=== PATIENT | male | born 1965 | race Caucasian/White ===

== ENCOUNTER 2022-09-19 08:48 | Emergency (ER) | payer MEDICARE, SELFPAY ==
[2022-09-19 09:02] VITALS: BP 178/108; PULSE 108; RESP 16; TEMP 36.7; O2SAT 99
--- NOTE | 2022-09-19 10:09 | ED.GENADULT ---
HPI - General Adult General Chief complaint: Unspecified Stated complaint: refill Time Seen by Provider: 09/19/22 08:52 Source: patient Mode of arrival: ambulatory Limitations: no limitations History of Present Illness HPI narrative: 57-year-old male [facility] requesting a refill of his Ritalin. Patient reports he takes Ritalin 10 mg 3 times a day. Patient reports he has been taking this medication years as part of pain management due to him taking Dilaudid daily Through his pain pump. Patient reports he has had this pain pump for the past 15 years. Patient reports that he recently moved back here from [place] and is scheduled to see a new pain management provider at [facility] on September 29, 2022. Patient reports that his primary care provider back in [place] is now refusing to fill his Ritalin any longer due to him moving out of [facility]. Related Data Home Medications Medication Instructions Recorded Confirmed duloxetine 60 mg capsule,delayed 60 mg PO BID 09/19/22 09/19/22 release methylphenidate HCl 10 mg tablet 10 mg PO TID 09/19/22 09/19/22 naproxen sodium 220 mg tablet 220 mg PO BID 09/19/22 09/19/22 Allergies Allergy/AdvReac Type Severity Reaction Status Date / Time cephalexin [From Keflex] Allergy Intermediate Hives Verified 09/19/22 10:06 Review of Systems Constitutional: Constitutional: Denies body ache(s) and Denies chills Cardiovascular: Cardiovascular: Denies chest pain Respiratory: Respiratory: Denies cough and Denies wheezing Gastrointestinal: Gastrointestinal: Denies nausea and Denies vomiting Musculoskeletal: Musculoskeletal: Reports back pain Comments: Chronic back pain [facility] Past Medical History Medical History (Updated 09/19/22 @ 10:13 by Meaghan Roger APRN) Chronic back pain Comments At time of signature, I agree with nursing past medical, surgical, social and family history. There is no relevant family history pertinent to the presenting complaint. Exam Const: General: cooperative, healthy appearing, comfortable, no acute distress and anxious Eyes: Eyelids: eyelids normal Conjunctivae: conjunctivae normal Neck: Neck: normal visual inspection and full ROM Resp: Effort & Inspection: normal respiratory effort, able to speak in complete sentences, normal respiratory pattern, no audible wheezes and no cough Auscultation: clear to auscultation bilaterally Cardio: Rate: regular rate Rhythm: regular rhythm Skin: General skin exam: normal color Psych: Appearance: grossly normal Course Course Level of Care: [facility] Visit Vital Signs Vital signs: Vital Signs Temperature 36.7 C 09/19/22 09:02 Pulse Rate 108 H 09/19/22 09:02 Respiratory Rate 16 09/19/22 09:02 Blood Pressure 178/108 H 09/19/22 09:02 Pulse Oximetry 99 09/19/22 09:02 Oxygen Delivery Room Air 09/19/22 09:02 Temperature 36.7 C 09/19/22 09:02 Pulse Rate 108 H 09/19/22 09:02 Respiratory Rate 16 09/19/22 09:02 Blood Pressure 178/108 H 09/19/22 09:02 Pulse Oximetry 99 09/19/22 09:02 Oxygen Delivery Room Air 09/19/22 09:02 Medical Decision Making MDM Narrative Medical decision making narrative: ilpmp reviewed; instructed patient that unfortunately I would not be able to refill his Ritalin today as it is a controlled substance. Patient reports that he understands and will check with other urgent cares or emergency rooms in the area. Patient was provided with phone numbers of local primary care providers as well Vital Signs Vital Signs: Vital Signs Temperature 36.7 C 09/19/22 09:02 Pulse Rate 108 H 09/19/22 09:02 Respiratory Rate 16 09/19/22 09:02 Blood Pressure 178/108 H 09/19/22 09:02 Pulse Oximetry 99 09/19/22 09:02 Oxygen Delivery Room Air 09/19/22 09:02 Temperature 36.7 C 09/19/22 09:02 Pulse Rate 108 H 09/19/22 09:02 Respiratory Rate 16 09/19/22 09:02 Blood Pressure 178/108 H 09/19/22 09:02 Pulse Ox
== END 2022-09-19 10:25 | disposition home or self-care (01) ==
PROVIDERS: Emergency Provider Nurse Practitioner Family
DX: Z76.0 Encounter for issue of repeat prescription (principal)
CPT/HCPCS: 99211; G0463

== ENCOUNTER 2022-09-20 07:44 | Emergency (ER) | payer MEDICARE, MEDICAID, SELFPAY ==
[2022-09-20 07:48] VITALS: BP 189/118; PULSE 109; RESP 18; TEMP 36.5; O2SAT 99
--- NOTE | 2022-09-20 08:36 | ED.RECABL ---
HPI - Recheck/Abnormal Lab/Rx General Chief Complaint: Recheck/Abnormal Lab/Rx Stated Complaint: Ritalin refill Time Seen by Provider: 09/20/22 08:32 History of Present Illness HPI narrative: Pt just moved to area from [place]. Pt has intrathecal pain pump with dilaudid for chronic back pain issues. Pt takes ritalin as well and is out of ritalin rx. Pt unable to get it filled until his pain appointment 09/29. Pt takes 10mg tid. Pt denies other issues. Related Data Home Medications Medication Instructions Recorded Confirmed duloxetine 60 mg capsule,delayed 60 mg PO BID 09/19/22 09/19/22 release methylphenidate HCl 10 mg tablet 10 mg PO TID 09/19/22 09/19/22 naproxen sodium 220 mg tablet 220 mg PO BID 09/19/22 09/19/22 Allergies Allergy/AdvReac Type Severity Reaction Status Date / Time cephalexin [From Keflex] Allergy Intermediate Hives Verified 09/19/22 10:06 Review of Systems Review of Systems: All systems reviewed & are unremarkable except as noted in HPI and below PMFSH Past Medical History Medical History (Updated 09/20/22 @ 08:39 by Deyanira Burt III, DO) Chronic back pain Exam Const: General: healthy appearing and no acute distress Nutritional Appearance: well nourished Orientation/consciousness: patient oriented x3 Limitations: no limitations HENMT: Head: normal to inspection Eyes: Conjunctivae: conjunctivae normal EOM: EOMs intact bilaterally Neck: Neck: normal visual inspection Back/Spine/Pelvis: Other: no significant tenderness Skin: General skin exam: normal color Rashes: no rashes Wounds: no wounds Neuro: General: patient oriented x3 and moves all extremities Speech: normal speech Gait exam (Neuro): Normal gait present Extrem: General: normal to inspection Psych: Mental Status: mental status grossly normal Affect: normal affect Attitude: cooperative Course Vital Signs Vital signs: Vital Signs Temperature 97.7 F 09/20/22 07:48 Pulse Rate 109 H 09/20/22 07:48 Respiratory Rate 18 09/20/22 07:48 Blood Pressure 189/118 H 09/20/22 07:48 Pulse Oximetry 99 09/20/22 07:48 Oxygen Delivery Room Air 09/20/22 07:48 Temperature 97.7 F 09/20/22 07:48 Pulse Rate 109 H 09/20/22 07:48 Respiratory Rate 18 09/20/22 07:48 Blood Pressure 189/118 H 09/20/22 07:48 Pulse Oximetry 99 09/20/22 07:48 Oxygen Delivery Room Air 09/20/22 07:48 Discharge Plan Discharge Clinical Impression: Chronic back pain Patient Disposition: Home, Self-Care Condition: Stable Instructions: Antibiotic Form, Back Pain (ED) Prescriptions: New methylphenidate HCl [Ritalin] 10 mg tablet 10 mg PO TID Qty: 40 0RF No Action methylphenidate HCl 10 mg Tablet 10 mg PO TID naproxen sodium 220 mg Tablet 220 mg PO BID duloxetine 60 mg capsule,delayed release(DR/EC) 60 mg PO BID Follow-up/Referrals: PHYSICIAN,TURN DOWN ATTENDANT [Primary Care Provider] -
== END 2022-09-20 09:01 | disposition home or self-care (01) ==
PROVIDERS: Emergency Provider Emergency Medicine
DX: M54.9 Dorsalgia, unspecified (principal); G89.29 Other chronic pain
CPT/HCPCS: 99283

== ENCOUNTER 2022-09-23 09:04 | Emergency (ER) | payer MEDICARE, MEDICAID, SELFPAY ==
--- NOTE | ~2022-09-23 | XR_ITS ---
Lumbosacral Spine: AP and lateral views Clinical History: Pain Findings: There is posterior fusion hardware from L5 to S1, with bilateral rods and transpedicular sc rews present. There is a 2.2 cm anterolisthesis of L5 over S1. There are facet joint degenerative nona nges from L3 through S1. No acute fracture clearly identified. Intrathecal pain pump device present. Impression: No definite acute abnormality. Posterior fusion from L5 to S1 with associated 2.2 cm anterolisthesis of L5 over S1. Facet joint degenerative changes at the lower lumbar spine. Intrathecal pain pump. Reviewed, dictated and finalized at location . BOSS Impression: No definite acute abnormality. Posterior fusion from L5 to S1 with associated 2.2 cm anterolisthesis of L5 ove r S1. Facet joint degenerative changes at the lower lumbar spine. Intrathecal pain pump.
[2022-09-23 09:09] VITALS: BP 193/100; PULSE 100; RESP 14; TEMP 36.4; O2SAT 98
[2022-09-23 09:16] VITALS: BP 188/118; PULSE 95; RESP 16; TEMP 37.1; O2SAT 100
--- NOTE | 2022-09-23 09:33 | ED.BACK ---
HPI - Back Pain/Injury General Chief Complaint: Back Pain/Injury Stated Complaint: back pain Time Seen by Provider: 09/23/22 09:15 History of Present Illness HPI Narrative: Patient is a 57-year-old male with a history of chronic back pain secondary to old traumatic injury, status post pain pump placement in [place], here for evaluation of acute on chronic low back pain. Patient states that his back has been hurting him for the past month. He recently moved from [place] and has not established care with a pain specialist, but has an appointment on the . Presents today due to concerns of his back pump not working properly. He denies any incontinence or retention of his bowel or bladder, he has chronic paresthesias in his bilateral lower extremities, reportedly due to the old injury. No worse than usual. He is ambulatory. No fevers, chills, recent trauma to the back, history of IV drug use. Related Data Home Medications Medication Instructions Recorded Confirmed duloxetine 60 mg capsule,delayed 60 mg PO BID 09/19/22 09/19/22 release methylphenidate HCl 10 mg tablet 10 mg PO TID 09/19/22 09/19/22 naproxen sodium 220 mg tablet 220 mg PO BID 09/19/22 09/19/22 Allergies Allergy/AdvReac Type Severity Reaction Status Date / Time cephalexin [From Keflex] Allergy Intermediate Hives Verified 09/23/22 09:15 Review of Systems Review of Systems: Gen: Denies fevers or chills Eyes: Denies eye pain or visual change ENT: Denies congestion Respiratory: Denies shortness of breath or cough CV: Denies chest pain or palpitations GI: Denies abdominal pain nausea, emesis or diarrhea : denies burning, urgency, frequency or hematuria Musculoskeletal: Reports back pain Neuro: Denies numbness, tingling, weakness or focal weakness Skin: Denies rash Except as documented, all other systems reviewed and negative PMFSH Past Medical History Medical History Chronic back pain Exam Narrative: APPEARANCE: Well appearing, no pain in distress, well-nourished. Head: Normocephalic and atraumatic. EYES: PERRLA/EOMI, conjunctivae clear NOSE: No nasal drainage EARS: External ear normal in appearance THROAT: Oropharynx is clear. Mucous membranes are moist. NECK: Supple. No adenopathy, no masses. RESPIRATORY: Airway patent, respirations nonlabored. Clear to auscultation bilaterally, no rales, rhonchi, wheezing. CARDIOVASCULAR: Regular rate and rhythm without murmurs, rubs, or gallops. ABDOMINAL: Normoactive bowel sounds. Soft, nontender, nondistended. No rebound tenderness or guarding. MUSCULOSKELETAL: Midline tenderness to L5, no step-offs or deformities palpated. Pain pump in place to the left of the L-spine. Extremities are warm and well-perfused. Moves all extremities well. No edema. NEURO: Normal speech. No focal neurologic deficits. SKIN: Skin is warm and dry. No rashes. PSYCHIATRIC: Normal affect/mood. Course Vital Signs Vital signs: Vital Signs Temperature 97.6 F 09/23/22 09:09 Pulse Rate 100 09/23/22 09:09 Respiratory Rate 14 09/23/22 09:09 Blood Pressure 193/100 H 09/23/22 09:09 Pulse Oximetry 98 09/23/22 09:09 Oxygen Delivery Room Air 09/23/22 09:09 Temperature 98.8 F 09/23/22 09:16 Pulse Rate 95 09/23/22 09:16 Respiratory Rate 16 09/23/22 09:16 Blood Pressure 188/118 H 09/23/22 09:16 Pulse Oximetry 100 09/23/22 09:16 Oxygen Delivery Room Air 09/23/22 09:16 MDM - Back Pain/Injury MDM Narrative Medical decision making narrative: 57-year-old male here for evaluation of acute on chronic low back pain since moving to the area and not having pain management. She has a complicated history with a pain pump in place, neurostimulator, and numerous fusion surgeries in the past. Patient is nontoxic-appearing, he does have some midline tenderness to his L4-L5 region. No incontinence or retention of bowel or bladder, saddle anes
[2022-09-23] MEDS: HYDROcodone/acetaminophen (*CRX) 7.5-325 MG TABLET 1 TAB PO (09:40)
--- NOTE | 2022-09-23 09:41 | PC.NURSE ---
Pt to XRAY via w/c, pt able to get up from bed for PO meds w/out difficulty
[2022-09-23 10:09] VITALS: BP 178/88; PULSE 88; RESP 15; O2SAT 97
== END 2022-09-23 10:11 | disposition home or self-care (01) ==
PROVIDERS: Emergency Provider Physician Assistant
DX: M54.50 Low back pain, unspecified (principal); G89.21 Chronic pain due to trauma; Z96.82 Presence of neurostimulator; Z98.1 Arthrodesis status
CPT/HCPCS: 72100; 99283; A9270

== ENCOUNTER 2022-10-21 09:56 | Emergency (ER) | payer MEDICARE, MEDICAID, SELFPAY ==
[2022-10-21 10:25] VITALS: BP 172/108; PULSE 104; RESP 14; TEMP 36.8; O2SAT 98
--- NOTE | 2022-10-21 11:13 | PC.NURSE ---
Not in WR at 1110
--- NOTE | 2022-10-21 11:46 | PC.NURSE ---
Danya Guerrero, production support engineer was escorting pt. to room; she asked the pt. if he was her for back pain today and replied No. I always have back pain, I am here for something different.
--- NOTE | 2022-10-21 12:16 | ED.GENADULT ---
HPI - General Adult General Chief complaint: Unspecified Stated complaint: lower back pain with neuropathy Time Seen by Provider: 10/21/22 12:03 History of Present Illness HPI narrative: Patient is a 57-year-old male presenting for medication refill. Patient states that he has a complicated history of chronic pain related to his lower back surgery many years ago. States that he is on high-dose narcotics and also has a thecal pump for pain control. He recently moved to [place] from [place] approximately 2 months ago. Since that time he was able to get an appointment with a new pain doctor but this physician is uncomfortable refilling his Ritalin. Patient was unable to get a primary care appointment until December. States that he feels he has been unable to function in his life without his Ritalin. States he has been on it for many many years. He otherwise denies complaints. No suicidal or homicidal ideation. No new pain, numbness, weakness. No fevers or chills or other infectious symptoms. Related Data Home Medications Medication Instructions Recorded Confirmed duloxetine 60 mg capsule,delayed 60 mg PO BID 09/19/22 09/19/22 release methylphenidate HCl 10 mg tablet 10 mg PO TID 09/19/22 09/19/22 naproxen sodium 220 mg tablet 220 mg PO BID 09/19/22 09/19/22 Allergies Allergy/AdvReac Type Severity Reaction Status Date / Time cephalexin [From Keflex] Allergy Intermediate Hives Verified 10/21/22 09:56 Review of Systems Review of Systems: All systems reviewed & are unremarkable except as noted in HPI and below PMFSH Past Medical History Medical History Chronic back pain Exam Narrative: GENERAL: Well-appearing, well-nourished, and in no acute distress. Pleasant and cooperative HEAD: Normocephalic, atraumatic. EYES: PERRLA and EOMI. ENT: Nares clear, no rhinorrhea or epistaxis. Mucous membranes moist. NECK: Supple. CHEST: No respiratory distress. HEART: Regular rate and rhythm. ABDOMEN: Soft, nondistended EXTREMITIES: Normal range of motion. No edema. SKIN: Warm, dry, no rash. NEURO: No focal deficits. Alert and oriented x3. PSYCH: Normal mood and affect. Course Vital Signs Vital signs: Vital Signs Temperature 98.2 F 10/21/22 10:25 Pulse Rate 104 H 10/21/22 10:25 Respiratory Rate 14 10/21/22 10:25 Blood Pressure 172/108 H 10/21/22 10:25 Pulse Oximetry 98 10/21/22 10:25 Oxygen Delivery Room Air 10/21/22 10:25 Temperature 98.2 F 10/21/22 10:25 Pulse Rate 100 10/21/22 13:04 Respiratory Rate 19 10/21/22 13:04 Blood Pressure 166/94 H 10/21/22 13:04 Pulse Oximetry 100 10/21/22 13:04 Oxygen Delivery Room Air 10/21/22 10:25 Medical Decision Making MDM Narrative Medical decision making narrative: Patient is a 57-year-old male presenting for medication refill. Patient is hypertensive, his vitals are within normal limits. Patient is well-appearing and in no acute distress. Exam is unremarkable. Discussed with the patient that I do not prescribe Ritalin from the ER. We will provide a one-time dose while he is here. Recommended that he follow-up closely with psychiatry, several numbers have been provided. Appropriate return precautions were given. Patient voiced understanding and is agreeable with plan. Discharged in stable condition. Differential Diagnosis Differential Diagnosis: medication refill Vital Signs Vital Signs: Vital Signs Temperature 98.2 F 10/21/22 10:25 Pulse Rate 104 H 10/21/22 10:25 Respiratory Rate 14 10/21/22 10:25 Blood Pressure 172/108 H 10/21/22 10:25 Pulse Oximetry 98 10/21/22 10:25 Oxygen Delivery Room Air 10/21/22 10:25 Temperature 98.2 F 10/21/22 10:25 Pulse Rate 100 10/21/22 13:04 Respiratory Rate 19 10/21/22 13:04 Blood Pressure 166/94 H 10/21/22 13:04 Pulse Oximetry 100 10/21/22 13:04 Oxygen Delivery Room Air 10/21/22 10:25
--- NOTE | 2022-10-21 13:03 | PC.NURSE ---
called pharm to request medication be brought for pt prior to discharge
[2022-10-21 13:04] VITALS: BP 166/94; PULSE 100; RESP 19; O2SAT 100
[2022-10-21] MEDS: methylPHENIDATE HCL (*CRX) 10 MG TABLET PO (13:37)
== END 2022-10-21 13:41 | disposition home or self-care (01) ==
PROVIDERS: Emergency Provider Emergency Medicine
DX: G89.29 Other chronic pain (principal); M54.50 Low back pain, unspecified; F32.A Depression, unspecified; Z97.8 Presence of other specified devices
CPT/HCPCS: 99283; A9270

== ENCOUNTER 2023-08-05 21:26 | Emergency (ER) | payer OTHER, SELFPAY ==
[2023-08-05] VITALS (10 sets, daily range): BP systolic 144–186; BP diastolic 83–101; PULSE 102; RESP 20; TEMP 36.4; O2SAT 97–99
--- NOTE | ~2023-08-05 | CT_ITS ---
EXAMINATION: CT lumbar spine w con DATE: 08/06/2023 01:27 INDICATION: Assess for spinal infection post lumbar spine pain pump removal. TECHNIQUE: Computed tomography (CT) of the lumbar spine was performed with 100 mL Omnipaque-350 intra venous contrast. Automated exposure control and iterative reconstruction technique were employed. The dose-length product was 432.08 mGy-cm. COMPARISON: Radiograph dated 09/23/2022 FINDINGS: Peripheral thin linear calcifications surrounding a couple small collections of fluid with tiny foci of gas in the subcutaneous tissues overlying the posterior superior left pelvis and slightly more cep halad to the contralateral right lower lumbar region at the sites of recently explanted pain pump on the left and spinal stimulator power supply in the right. There is a retained portion of the pain pum p catheter which extends throughout the thecal sac from the level of S2 cephalad to the distal tip wh ich is at the level of caudal aspect of T11. The spinal stimulator leads. Retained in the subcutaneou s tissues posterior to the right paralumbar region at the level of L2 and extending central canal by interspinous process approach at the level of T9-T10 where the stent beyond the cephalad margin of th e [id number]. There is some subcutaneous edema and distal subcutaneous gas in the posterior parasp inal subcutaneous tissues. Aside from the small amount of loculated fluid likely representing seromas at the explantation pockets there are no other likely fluid collections to suggest abscess. L5 and S1 laminectomies with changes of an instrumented L5-S1 posterior spinal fusion with bilateral vertical vega and pedicle screw fixation. There is a fracture of the right S1 pedicle screw with some lucency surrounding the screw posterior to the site of fracture. There is no evident solid osseous fu gurmeet. There is 12 mm anterolisthesis L5 on S1 with moderate to severe disc height loss. 3 mm anteroli sthesis L4 on L5. There is moderate disc height loss at T10-T11 and T11-T12 and mild disc height loss at L1-L2. Chronic appearing mild anterior wedging at T12. There are small Schmorl's nodes at both si darryl of the T11-T12 through L1-L2. No acute fracture. No cortical erosions to suggest osteomyelitis. S ubcentimeter low-attenuation cyst in the posterior right hepatic lobe at the lower poles of both kidn eys. Small amount of nonspecific free fluid in the deep pelvis. The following disc levels are specifi mario discussed: T11-T12: There is mild bilateral facet joint osteoarthritis. There is mild bilateral neural foraminal stenosis. There is no central canal stenosis. T12-L1: There is mild bilateral facet joint osteoarthritis. There is no neural foraminal stenosis. Th ere is no central canal stenosis. L1-L2: Right-sided There is mild left and and mild to moderate right facet joint osteoarthritis. Ther e is mild right neural foraminal stenosis. There is no central canal stenosis. L2-L3: Disc is mildly bulging. There is mild right and mild to moderate left facet joint osteoarthrit is. There is mild right and minimal left neural foraminal stenosis. There is mild central canal steno sis. L3-L4: Disc is bulging. There is moderate bilateral facet joint osteoarthritis. There is mild bilater al neural foraminal stenosis. There is mild central canal stenosis. L4-L5: Disc is bulging. There is severe bilateral facet joint osteoarthritis. There is mild to modera te bilateral neural foraminal stenosis. There is mild central canal stenosis. L5-S1: Posterior decompression with no central canal stenosis. There is mild bilateral neural foramin al stenosis. IMPRESSION: 1. Subcutaneous gas and stranding and small amount of fluid collections with tiny foci of gas within bilateral pockets from the recently explanted lumbar pain pump and spinal stimulator power supply. Th alva would be consistent with expected postoperative seromas
--- NOTE | 2023-08-05 22:43 | PC.NURSE ---
Upon arrival pt states that he had pain pump surgery yesterday to have his battery replace, pt also states that during the surgery they removed pain pump and sent him home with a prescription for hydrocodone. Pt states that he is having severe neuropathy in bilateral legs/ feet. Pt states 'it feelsl like there are pins and needles, my doctor told me to come here and be evaluated .
--- NOTE | 2023-08-05 23:33 | ED.GENADULT ---
HPI - General Adult General Chief complaint: Recheck/Abnormal Lab/Rx Stated complaint: HTN Time Seen by Provider: 08/05/23 22:33 Source: patient Mode of arrival: ambulatory Limitations: no limitations History of Present Illness HPI narrative: This is a 58-year-old male who presents to the ED with chief complaint of low back pain beginning today. He had surgical procedure to remove a Dilaudid pain pump done at [facility] [place]. He states he was told that there was a pocket infection site the implant that the removed. They placed on Bactrim. He states he is here because his blood pressure was elevated he was having increasing postoperative pain. Reports that he has for neuropathy pain as opposed to pain in the low back. He has not been on gabapentin due to being on the Dilaudid. Denies fevers, chills, nausea, vomiting or any further complaint. Related Data Home Medications Medication Instructions Recorded Confirmed duloxetine 60 mg capsule,delayed 60 mg PO BID 09/19/22 09/19/22 release methylphenidate HCl 10 mg tablet 10 mg PO TID 09/19/22 09/19/22 naproxen sodium 220 mg tablet 220 mg PO BID 09/19/22 09/19/22 Allergies Allergy/AdvReac Type Severity Reaction Status Date / Time cephalexin [From Keflex] Allergy Intermediate Hives Verified 08/05/23 22:38 Review of Systems Review of Systems: All systems as dictated in [facility] Past Medical History Medical History Chronic back pain Exam Narrative: GENERAL: Well-appearing, well-nourished, and in no acute distress. HEAD: Normocephalic, atraumatic. EYES: PERRLA and EOMI. ENT: Nares clear, no rhinorrhea or epistaxis. Mucous membranes moist. Oropharynx without tonsillar hypertrophy exudate or other lesions. NECK: Supple. No adenopathy or masses. CHEST: No respiratory distress. Clear to auscultation. No wheezes rales or rhonchi HEART: Regular rate and rhythm. No murmur heard. Normal peripheral pulses. ABDOMEN: Soft, nontender, nondistended, normal active bowel sounds. MSK: Normal range of motion. No edema. SKIN: Warm, dry, no rash. Skin around the surgical sites appears intact. No warmth. No erythema or drainage. NEURO: Alert and oriented x3. No focal deficits. PSYCH: Normal mood and affect. Course Vital Signs Vital signs: Vital Signs Temperature 97.6 F 08/05/23 21:34 Pulse Rate 102 H 08/05/23 21:34 Respiratory Rate 20 08/05/23 21:34 Blood Pressure 186/101 H 08/05/23 21:34 Pulse Oximetry 99 08/05/23 21:34 Oxygen Delivery Room Air 08/05/23 21:34 Temperature 97.6 F 08/05/23 21:34 Pulse Rate 102 H 08/05/23 22:37 Respiratory Rate 20 08/05/23 21:34 Blood Pressure 146/90 H 08/05/23 23:01 Pulse Oximetry 99 08/05/23 23:30 Oxygen Delivery Room Air 08/05/23 21:34 Medical Decision Making MDM Narrative Medical decision making narrative: This is a 58-year-old male who presents to the ED with chief complaint of low back pain and neuropathy following surgical procedure to remove a low back pain pump. Vitals show initial slight tachycardia 102 but otherwise intact. Afebrile. Exam of the surgical sites is intact. No obvious evidence of infection. Lab work is largely unremarkable. Normal white count. \ CT lumbar spine with IV contrast was ordered and shows left posterior body wall pain pump has been removed. Residual subcutaneous gas in this location. Peripherally calcified fluid pocket measuring 5.6 x 1.1 cm likely corresponding to the site of previous pump. This is favored to represent a seroma. Epidural catheter we had remains in place, tip at the T11-T12 level. No acute fractures. Spoke with Josh OPTICAL INSTRUMENT INSPECTOR with Dr. Sandoval (pain management) : They are good with following up with patient in clinic. They agree that he is likely stable to be discharged home on his pain medications. No further recommendation. Pt will be discharged in stable con
[2023-08-05] MEDS: SODIUM CHLORIDE 0.9% IV 1,000 ML 999 ML IV CONT (23:41)
[2023-08-06] VITALS (7 sets, daily range): BP systolic 154; BP diastolic 94; PULSE 88; O2SAT 95–99
[2023-08-06 00:08] LABS: Basophils Percent Auto 0.4 % (0.2-1.2); Eosinophils Absolute Auto 0.2 K/mm3 (0-0.3); Eosinophils Percent Auto 3.1 % (0-4.4); Hematocrit 35.8 % (42.0-52.0); Hemoglobin 11.3 g/dL (14.0-18.0); Immature Granulocyte Absolute 0.01 K/mm3 (0.00-0.031); Immature Granulocyte Percent A 0.1 % (0-0.5); Lymphocytes Absolute Auto 1.29 K/mm3 (0.9-3.2); Lymphocytes Percent Auto 18.8 % (18.3-44.2); Mean Corpuscular HGB Conc 31.6 g/dl (32-36); Mean Corpuscular Hemoglobin 24.8 pg (26-34); Mean Corpuscular Volume 78.7 fl (80-100); Mean Platelet Volume 9.7 fl (7.4-10.4); Monocytes Absolute Auto 0.9 K/mm3 (0.1-0.6); Monocytes Percent Auto 12.5 % (2.6-8.5); Neutrophils Absolute Auto 4.5 K/mm3 (1.3-6.7); Neutrophils Percent Auto 65.1 % (45.5-73.1); Platelet Count Result 215 k/mm3 (150-375); Red Blood Count 4.55 M/mm3 (4.6-6.20); Red Cell Distribution Width 17.5 % (11.5-14.5); White Blood Count 6.9 K/mm3 (4.5-10.0)
[2023-08-06 00:55] LABS: Alanine Aminotransferase 25 U/L (6-50); Albumin Level 4.2 g/dL (3.5-5.1); Alkaline Phosphatase 56 U/L (38-126); Anion Gap 12 mmol/L (8-16); Aspartate Amino Transferase 58 U/L (17-59); Bilirubin,Total 0.5 mg/dL (0.2-1.3); Blood Urea Nitrogen 25 mg/dL (9-20); Calcium 9.2 mg/dL (8.4-10.2); Carbon Dioxide 22 mmol/L (22-30); Chloride 96 mmol/L (98-107); Estimated CRCL calculation 59 ml/min; Estimated Glomerular Filt Rate 56; Glucose 88 mg/dL (65-110); Potassium 4.5 mmol/L (3.4-5.0); Sodium 130 mmol/L (137-145)
[2023-08-06] MEDS: HYDROmorphone HCL INJ (*CRX) 1 MG/ML SYR 0.5 MG IV PUSH (01:31)
== END 2023-08-06 03:56 | disposition home or self-care (01) ==
PROVIDERS: Emergency Provider Physician Assistant
DX: M54.50 Low back pain, unspecified (principal); G89.29 Other chronic pain; Z98.890 Other specified postprocedural states
CPT/HCPCS: 36415; 72132; 80053; 85025; 96361; 96374; 99284; J1170; J7030; Q9967

== ENCOUNTER 2023-08-12 07:03 | Emergency (ER) | payer OTHER, SELFPAY ==
[2023-08-12 07:03] VITALS: BP 197/118; PULSE 109; RESP 24; O2SAT 99
--- NOTE | 2023-08-12 07:39 | ED.GENADULT ---
HPI - General Adult General Chief complaint: Unspecified Stated complaint: narc withdrawl Time Seen by Provider: 08/12/23 07:10 History of Present Illness HPI narrative: 58-year-old male with history of chronic pain and a implanted pain pump presents to the ED complaining of uncontrolled chronic pain. Patient reports that the battery on his pain pump is supposed to last 7 years and he last had it changed approximately 7 years ago. Patient went to his pain specialist to have the pump changed and due to concern for underlying infection the pain pump was not replaced. Patient states he was given p.o. medications for pain control but that today he was having runny nose and back pain and these are symptoms that he attributed to opiate withdrawal. Related Data Home Medications Medication Instructions Recorded Confirmed duloxetine 60 mg capsule,delayed 60 mg PO BID 09/19/22 09/19/22 release methylphenidate HCl 10 mg tablet 10 mg PO TID 09/19/22 09/19/22 Allergies Allergy/AdvReac Type Severity Reaction Status Date / Time cephalexin [From Keflex] Allergy Intermediate Hives Verified 08/05/23 22:38 Review of Systems Review of Systems: All systems reviewed & are unremarkable except as noted in HPI and below PMFSH Past Medical History Medical History Chronic back pain Course Course Emergency Course: 58-year-old male presents emergency department for management of his chronic pain. Patient states he does have pain medications at home. Patient was afebrile with no leukocytosis stable hemoglobin. Patient had no significant electrolyte abnormalities. Patient reports his pain was controlled with the Toradol. Patient was encouraged on close follow-up with his pain specialist and patient states he does have follow-up on Tuesday. Vital Signs Vital signs: Vital Signs Pulse Rate 109 H 08/12/23 07:03 Respiratory Rate 24 H 08/12/23 07:03 Blood Pressure 197/118 H 08/12/23 07:03 Pulse Oximetry 99 08/12/23 07:03 Oxygen Delivery Room Air 08/12/23 07:03 Pulse Rate 113 H 08/12/23 10:04 Respiratory Rate 22 H 08/12/23 10:04 Blood Pressure 163/119 H 08/12/23 10:04 Pulse Oximetry 100 08/12/23 10:04 Oxygen Delivery Room Air 08/12/23 07:03 Medical Decision Making Vital Signs Vital Signs: Vital Signs Pulse Rate 109 H 08/12/23 07:03 Respiratory Rate 24 H 08/12/23 07:03 Blood Pressure 197/118 H 08/12/23 07:03 Pulse Oximetry 99 08/12/23 07:03 Oxygen Delivery Room Air 08/12/23 07:03 Pulse Rate 113 H 08/12/23 10:04 Respiratory Rate 22 H 08/12/23 10:04 Blood Pressure 163/119 H 08/12/23 10:04 Pulse Oximetry 100 08/12/23 10:04 Oxygen Delivery Room Air 08/12/23 07:03 Lab Data 08/12/23 07:49 08/12/23 07:49 Labs: Lab Results 08/12/23 Range/Units 07:49 WBC 7.1 (4.5-10.0) K/mm3 RBC 4.65 (4.6-6.20) M/mm3 Hgb 11.7 L (14.0-18.0) g/dL Hct 36.0 L (42.0-52.0) % MCV 77.4 L (80-100) fl MCH 25.2 L (26-34) pg MCHC 32.5 (32-36) g/dl RDW 17.6 H (11.5-14.5) % Plt Count 256 (150-375) k/mm3 MPV 9.1 (7.4-10.4) fl Immature Gran % (Auto) 0.3 (0-0.5) % Neut % (Auto) 68.0 (45.5-73.1) % Lymph % (Auto) 16.6 L (18.3-44.2) % Simpson % (Auto) 10.3 H (2.6-8.5) % Eos % (Auto) 3.8 (0-4.4) % Baso % (Auto) 1.0 (0.2-1.2) % Lymph # (Auto) 1.17 (0.9-3.2) K/mm3 Simpson # (Auto) 0.7 H (0.1-0.6) K/mm3 Eos # (Auto) 0.3 (0-0.3) K/mm3 Baso # (Auto) 0.1 (0.0-0.1) K/mm3 Abs Immat Gran (auto) 0.02 (0.00-0.031) K/mm3 Absolute Neuts (auto) 4.8 (1.3-6.7) K/mm3 Absolute Nucleated RBC 0.0 (0.0-0.012) K/mm3 Nucleated RBC % 0.0 (0.0-0.2) % Sodium 130 L (137-145) mmol/L Potassium 4.2 (3.4-5.0) mmol/L Chloride 101 (98-107) mmol/L Carbon Dioxide 20 L (22-30) mmol/L Anion Gap 9 (8-16) mmol/L BUN 22 H (9-20) mg/dL Creatinine 1.20 (0
[2023-08-12] MEDS: KETOROLAC 15 MG/ML VIAL (*BKC) IV PUSH (07:54)
[2023-08-12] MEDS: SODIUM CHLORIDE 0.9% IV 1,000 ML 999 ML IV CONT (07:54)
[2023-08-12 07:55] LABS: Basophils Absolute Auto 0.1 K/mm3 (0.0-0.1); Eosinophils Absolute Auto 0.3 K/mm3 (0-0.3); Eosinophils Percent Auto 3.8 % (0-4.4); Hemoglobin 11.7 g/dL (14.0-18.0); Immature Granulocyte Absolute 0.02 K/mm3 (0.00-0.031); Immature Granulocyte Percent A 0.3 % (0-0.5); Lymphocytes Absolute Auto 1.17 K/mm3 (0.9-3.2); Lymphocytes Percent Auto 16.6 % (18.3-44.2); Mean Corpuscular HGB Conc 32.5 g/dl (32-36); Mean Corpuscular Hemoglobin 25.2 pg (26-34); Mean Corpuscular Volume 77.4 fl (80-100); Mean Platelet Volume 9.1 fl (7.4-10.4); Monocytes Absolute Auto 0.7 K/mm3 (0.1-0.6); Monocytes Percent Auto 10.3 % (2.6-8.5); Neutrophils Absolute Auto 4.8 K/mm3 (1.3-6.7); Platelet Count Result 256 k/mm3 (150-375); Red Blood Count 4.65 M/mm3 (4.6-6.20); Red Cell Distribution Width 17.6 % (11.5-14.5); White Blood Count 7.1 K/mm3 (4.5-10.0)
[2023-08-12 08:07] LABS: Anion Gap 9 mmol/L (8-16); Blood Urea Nitrogen 22 mg/dL (9-20); Calcium 9.1 mg/dL (8.4-10.2); Carbon Dioxide 20 mmol/L (22-30); Chloride 101 mmol/L (98-107); Estimated CRCL calculation 63 ml/min; Estimated Glomerular Filt Rate > 60; Glucose 102 mg/dL (65-110); Potassium 4.2 mmol/L (3.4-5.0); Sodium 130 mmol/L (137-145)
[2023-08-12 10:04] VITALS: BP 163/119; PULSE 113; RESP 22; O2SAT 100
== END 2023-08-12 10:04 | disposition home or self-care (01) ==
PROVIDERS: Emergency Provider Emergency Medicine
DX: G89.29 Other chronic pain (principal); M54.9 Dorsalgia, unspecified; Z97.8 Presence of other specified devices
CPT/HCPCS: 36415; 80048; 85025; 96361; 96374; 99284; J1885; J7030

== ENCOUNTER 2023-09-23 11:16 | Emergency (ER) | payer OTHER, SELFPAY ==
[2023-09-23 12:28] VITALS: BP 166/102; PULSE 102; RESP 18; TEMP 36.3; O2SAT 100
--- NOTE | 2023-09-23 13:14 | ED.BACK ---
HPI - Back Pain/Injury General Chief Complaint: Back Pain/Injury Stated Complaint: back pain Time Seen by Provider: 09/23/23 12:59 History of Present Illness HPI Narrative: Patient is a 58-year-old male with history of chronic back pain here with lower back pain. He states that on August 04 his pain medicine doctor at [facility] went in to do a pain pump exchange but he had some fluid in the pocket concerning for possible infection. He left out the replacement and patient has been struggling with pain control since that time. He notes that he was initially placed on 10 mg of oxycodone, then he was transitioned view bone or feet however he had significant side effects from the Cipro morphine so this was discontinued. He then was started back on Rincon. He states that he has been having some issues making his appointments due to his pain and constipation which has limited his ability to get a medication refill from his pain management doctor. He notes that he has been having some increased neuropathies, and increased pain. Denies any new neurological deficits. Denies any injuries. Denies any fever chills. He does note that he has an appointment with his pain medication doctor on Tuesday and is just requesting help with pain control to make this appointment. Related Data Home Medications Medication Instructions Recorded Confirmed duloxetine 60 mg capsule,delayed 60 mg PO BID 09/19/22 09/19/22 release methylphenidate HCl 10 mg tablet 10 mg PO TID 09/19/22 09/19/22 Allergies Allergy/AdvReac Type Severity Reaction Status Date / Time cephalexin [From Keflex] Allergy Intermediate Hives Verified 09/23/23 11:16 Review of Systems Review of Systems: All systems reviewed & are unremarkable except as noted in HPI and below PMFSH Past Medical History Medical History Chronic back pain Exam Narrative: GENERAL: Well-appearing, well-nourished, and in no acute distress. HEAD: Normocephalic, atraumatic. EYES: PERRLA and EOMI. ENT: Nares clear. Mucous membranes moist. NECK: Supple. CHEST: Clear to auscultation. No respiratory distress. HEART: Regular rate and rhythm. Normal peripheral pulses. ABDOMEN: Soft, nontender, nondistended. EXTREMITIES: Normal range of motion. No edema. Multiple well healing surgical wounds present over back. SKIN: Warm, dry, no rash. NEURO: No focal deficits. Alert and oriented x3. PSYCH: Normal mood and affect. Course Course Emergency Course: Chart review performed. Patient here with back pain, reportedly had pain pump removed on 09/03. ED visit reviewed from 08/12/23. He had been seen for back pain. They had some concern for opiate withdrawal. Patient seen evaluated, nontoxic appearing. He seems to have poorly managed chronic lower back pain and has had some difficulty getting into his pain management doctor. I have prescribed him 3 days worth of medication to get him through to his appointment on Tuesday. Advise he should be using this as prescribed and not increase the frequency that he is taking it. The results of pertinent diagnostic studies and exam findings were discussed. The patient?s provisional diagnosis and plan of care were discussed with the patient and present family. The patient and/or present family expressed understanding of the diagnosis and plan. The nurse was instructed to provide written instructions and appropriate follow-up information. The patient understands their need and responsibility to obtain additional follow-up as instructed. The risks of medications administered and prescribed were discussed with the patient and family present. Vital Signs Vital signs: Vital Signs Temperature 97.3 F L 09/23/23 12:28 Pulse Rate 102 H 09/23/23 12:28 Respiratory Rate 18 09/23/23 12:28 Blood Pressure 166/102 H 09/23/23 12:28 Pulse Oximetry 100 09/23/23 12:28 Oxygen Delivery Room Air 09/23/23 12:28
[2023-09-23 14:57] VITALS: PULSE 100; RESP 18; TEMP 36.8; O2SAT 98
== END 2023-09-23 14:59 | disposition home or self-care (01) ==
PROVIDERS: Emergency Provider Student in an Organized Health Care Education/Training Program
DX: M54.50 Low back pain, unspecified (principal); G89.29 Other chronic pain
CPT/HCPCS: 99283

== ENCOUNTER 2023-09-26 13:52 | Emergency (ER) | payer OTHER, SELFPAY ==
[2023-09-26 13:56] VITALS: BP 182/102; PULSE 110; RESP 16; TEMP 36.6; O2SAT 99
--- NOTE | 2023-09-26 16:30 | ED.RECABL ---
HPI - Recheck/Abnormal Lab/Rx General Chief Complaint: Recheck/Abnormal Lab/Rx Stated Complaint: out of pain meds Time Seen by Provider: 09/26/23 16:30 1630: Sidney is a 58-year-old male patient presenting to the ER today for a medication refill on his pain medications. He had appointment scheduled for pain specialist today and they canceled his appointment due to the ice. Reports that they rescheduled him on . Patient took his last dose of hydrocodone at 9:00 a.m. this morning. He reported that they told him to come the ER to be evaluated so he can get more pain medication prior to his appointment on . Source: patient and old records reviewed Mode of arrival: ambulatory Limitations: no limitations Related Data Home Medications Medication Instructions Recorded Confirmed duloxetine 60 mg capsule,delayed 60 mg PO BID 09/19/22 09/19/22 release methylphenidate HCl 10 mg tablet 10 mg PO TID 09/19/22 09/19/22 Allergies Allergy/AdvReac Type Severity Reaction Status Date / Time cephalexin [From Keflex] Allergy Intermediate Hives Verified 09/23/23 11:16 Review of Systems Review of Systems: Pertinent positives per HPI. Patient denies any fever, chills, rash, headache, visual changes, dizziness, cough, runny nose, sore throat, shortness of breath, chest pain, palpitations, nausea, vomiting, diarrhea, constipation, abdominal pain, or any urinary issues. PMFSH Past Medical History Medical History Chronic back pain Comments At the time of my signature, I reviewed and agree with the nursing past medical, surgical, social, and family history. There is no relevant family history pertinent to the patient complaint. Exam Narrative: General: Well-developed, well nourished, in no apparent distress Head: Normocephalic, atraumatic. Cardio: Regular rate and rhythm, s1 and s2 normal, no murmur appreciated. Resp: Clear to auscultation bilaterally, no rhonchi, rales, wheezing or rubs. Musculoskeletal: No deformity, tender to palpation to the lower back, grossly normal range of motion, bilateral back pain with straight leg test at approximately 60?, patellar reflexes 2+, negative for foot drop, muscle strength strong and equal, peripheral pulse strong, no edema, no cyanosis, normal gait and station Course Course Emergency Course: Portions of this record may have been created with voice recognition software. Vital Signs Vital signs: Vital Signs Temperature 36.6 C 09/26/23 13:56 Pulse Rate 110 H 09/26/23 13:56 Respiratory Rate 16 09/26/23 13:56 Blood Pressure 182/102 H 09/26/23 13:56 Pulse Oximetry 99 09/26/23 13:56 Oxygen Delivery Room Air 09/26/23 13:56 Temperature 36.6 C 09/26/23 13:56 Pulse Rate 110 H 09/26/23 13:56 Respiratory Rate 16 09/26/23 13:56 Blood Pressure 182/102 H 09/26/23 13:56 Pulse Oximetry 99 09/26/23 13:56 Oxygen Delivery Room Air 09/26/23 13:56 Vital signs reviewed MDM - Recheck/Abnormal Lab/Rx MDM Narrative Medical decision making narrative: At the time of visit patient is resting comfortably on the exam table. Patient appears to be nontoxic. Plan: Will give pain medication up to the time of visit on . Patient agrees to treatment plan. Supportive measures were discussed with the patient and they voiced understanding discharge instructions and agrees to treatment plan. Return precautions reviewed Differential Diagnosis Differential diagnosis: Likely encounter for medication refill Discharge Plan Discharge Clinical Impression: Encounter for medication refill Chronic back pain Qualifiers: Back pain location: low back pain Back pain laterality: midline Sciatica presence: without sciatica Qualified Code(s): M54.50 - Low back pain, unspecified Patient Disposition: Home, Self-Care Condition: Stable Instructions: Antibiotic Form, Chronic Back Pain (DC)
--- NOTE | 2023-09-26 16:33 | PC.NURSE ---
Pt ambulated to treatment room with cane without difficulty. Requesting pain med refill due to pain management closed for weather.
== END 2023-09-26 16:52 | disposition home or self-care (01) ==
LOC: ANHED 16:46
PROVIDERS: Emergency Provider Nurse Practitioner Family
DX: M54.50 Low back pain, unspecified (principal); G89.29 Other chronic pain; Z76.0 Encounter for issue of repeat prescription
CPT/HCPCS: 99281

== ENCOUNTER 2023-09-29 10:11 | Emergency (ER) | payer OTHER, SELFPAY ==
[2023-09-29 10:14] VITALS: BP 165/97; PULSE 95; RESP 18; TEMP 36.6; O2SAT 100
[2023-09-29 10:16] VITALS: BP 165/97; O2SAT 100
--- NOTE | 2023-09-29 10:30 | ED.BACK ---
HPI - Back Pain/Injury General Chief Complaint: Back Pain/Injury Stated Complaint: back pain Time Seen by Provider: 09/29/23 10:15 Source: patient Mode of arrival: EMS Limitations: no limitations History of Present Illness HPI Narrative: This is a 58-year-old male that presents to the emergency department for chronic low back pain. Reports he had a pain pump removed a couple of months prior. Reports since he has had a lot of trouble controlling his pain. He has missed his last 2 pain management appointments for different reasons. Presents today for pain medication. Denies fevers, new numbness or weakness. Related Data Home Medications Medication Instructions Recorded Confirmed duloxetine 60 mg capsule,delayed 60 mg PO BID 09/19/22 09/19/22 release methylphenidate HCl 10 mg tablet 10 mg PO TID 09/19/22 09/19/22 Allergies Allergy/AdvReac Type Severity Reaction Status Date / Time cephalexin [From Keflex] Allergy Intermediate Hives Verified 09/23/23 11:16 Review of Systems Review of Systems: CONSTITUTIONAL: Denies fever MUSCULOSKELETAL: Reports back pain, joint pain, and myalgia. NEUROLOGIC: Denies numbness, or weakness. All systems reviewed & are unremarkable except as noted in HPI and below PMFSH Past Medical History Medical History Chronic back pain Social History Social History (Updated 09/29/23 @ 10:59 by Joann Flores PA-C) Substance use: never Exam Narrative: GENERAL: Well-appearing, well-nourished, and in no acute distress. HEAD: Normocephalic, atraumatic. EYES: EOMI. CHEST: Clear to auscultation. No respiratory distress. No wheezes rales or rhonchi HEART: Regular rate and rhythm. No murmur heard. Normal peripheral pulses. BACK: No midline spinal tenderness EXTREMITIES: Normal range of motion. No edema. Strength equal in bilateral lower extremities (5/5) SKIN: Warm, dry, no rash. NEURO: No focal deficits. Alert and oriented x3. Normal gait PSYCH: Normal mood and affect Course Course Emergency Course: Patient resting comfortably after pain medication Consultations Consultation #1: I spoke with his hand touch up painter. Reports he can come see them for a prescription if needed. 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 provider Date: 09/29/23 Vital Signs Vital signs: Vital Signs Temperature 97.9 F 09/29/23 10:14 Pulse Rate 95 09/29/23 10:14 Respiratory Rate 18 09/29/23 10:14 Blood Pressure 165/97 H 09/29/23 10:14 Pulse Oximetry 100 09/29/23 10:14 Oxygen Delivery Room Air 09/29/23 10:14 Temperature 97.9 F 09/29/23 10:14 Pulse Rate 95 09/29/23 10:14 Respiratory Rate 18 09/29/23 10:14 Blood Pressure 165/97 H 09/29/23 10:14 Pulse Oximetry 100 09/29/23 10:14 Oxygen Delivery Room Air 09/29/23 10:14 MDM - Back Pain/Injury MDM Narrative Medical decision making narrative: Patient presents to the emergency department for chronic low back pain. No recent injuries or trauma. Patient is neurologically intact at his baseline. He currently is seeing pain management for this. Reports he has missed his last couple of appointments for varying reasons. He was given muscle relaxer, Tylenol and Toradol in the ED. Resting comfortably. I spoke with his hand touch up painter. Reports he can come see them for a prescription if needed. alf they would like him to follow up with a new provider. Will be given our pain management specialists for follow up. He was given warnings to return to the ER Differential Diagnosis Differential diagnosis: Likely lumbar radiculopathy, sciatica and strain of lumbar region Critical Care Time Critical Care Time Critical Care Time: No Discharge Plan Discharge Clinical Impression: Chronic back pain Qualifiers: Back pain location: low back pain Back pain laterality: midline Sciatica presence: with sciatica Sciatica laterality:
[2023-09-29] MEDS: diazePAM INJ (*CRX) 10 MG/2 ML SYRINGE 5 MG IM (11:10)
[2023-09-29] MEDS: ACETAMINOPHEN 500 MG TABLET 1000 MG PO (11:10)
[2023-09-29] MEDS: KETOROLAC 30 MG/ML VIAL (*BKC) IM (11:11)
--- NOTE | 2023-09-29 11:54 | PC.NURSE ---
PT states he wants to speak to NET MVC DEVELOPER while this nurse was attempting to discharge pt. Pt is asking for a script for pain medication.
[2023-09-29 12:28] VITALS: BP 161/97; PULSE 104; RESP 20; O2SAT 100
--- NOTE | 2023-09-29 12:31 | PC.NURSE ---
pt unhappy about lack of opioids prescriptions. pt educated on misuse and to follow up with pain management
== END 2023-09-29 12:32 | disposition home or self-care (01) ==
PROVIDERS: Emergency Provider Physician Assistant
DX: M54.42 Lumbago with sciatica, left side (principal); M54.41 Lumbago with sciatica, right side; G89.29 Other chronic pain
CPT/HCPCS: 96372; 99284; A9270; J1885; J3360

== ENCOUNTER 2023-11-08 16:49 | Outpatient (CLI) | payer OTHER, SELFPAY ==
--- NOTE | ~2023-11-08 | XR_ITS ---
EXAMINATION: XR lumbar spine 6V w bending DATE: 11/08/2023 17:22 INDICATION: Acute bilateral low back pain. TECHNIQUE: 9 views of lumbar spine were obtained. COMPARISON: Lumbar spine radiographs 09/23/2022, CT 08/06/2023 FINDINGS: There is 10 degrees dextroscoliosis of thoracolumbar spine. There is 3 mm anterolisthesis o f L4 on L5 and 14 mm anterolisthesis of L5 on S1. There are changes of posterior fusion procedure at L5-S1. The right S1 screw is broken. There is no abnormal motion with flexion or extension. There is mild chronic anterior wedging of T12 and L1 vertebral bodies. There is mildly decreased disc height a t L4-L5 and severely decreased disc height at L5-S1. There is multilevel facet joint osteoarthritis, severe at L4-L5. Intrathecal catheter is noted. Epidural electrodes are noted. IMPRESSION: 1. Severe lower lumbar spondylosis. 2. Posterior fusion procedure at L5-S1 with broken right S1 screw again seen. Reviewed, dictated and finalized at location [facility] [employer]
== END 2023-11-08 16:50 | disposition home or self-care (01) ==
PROVIDERS: PCP Nurse Practitioner Family; Visit Provider Nurse Practitioner Family
DX: M54.40 Lumbago with sciatica, unspecified side (principal); M47.896 Other spondylosis, lumbar region; Z98.1 Arthrodesis status
CPT/HCPCS: 72114

== ENCOUNTER 2025-04-19 13:55 | Outpatient (CLI) | payer OTHER, SELFPAY ==
--- NOTE | ~2025-04-19 | XR_ITS ---
Cervical Spine: AP, lateral, open-mouth views Clinical History: Pain Findings: There is mild reversal of the normal cervical lordosis. There is moderate to advanced degen erative disc narrowing at C5-C6 and C6-C7. There are mild facet joint degenerative changes. Pre-verte bral soft tissues are unremarkable. Impression: [id number] degenerative spondylosis overall, as detailed above. No instability on flexion or extension. Reviewed, dictated and finalized at [facility]. Impression: [id number] degenerative spondylosis overall, as detailed above. No instability on flexion or extension.
--- OUTSIDE RECORDS SUMMARY | 2025-04-19 14:00 | XMS_ITS | Clinical Summary ---
Author Organization [facility] Office Building [address] [place] [id number] Care Team Providers Care Child Support Case Officer Name Role Phone Jayda Conner NP Primary Care Provider [phone] Allergies Active Allergy Reactions Criticality Noted Date Comments House Dust Chest tightness,Itch ing,Shortness of breath,Wheezing High 05/18/1966 Cephalexin Urticaria Medium 09/23/2022 Mold Itching,Shortness of breath,Stomach upset High 05/18/1966 Medications mv-min/folic/K1 /lycopen/lutein (CENTRUM MEN 50 PLUS MINIS ORAL) Take 1 tablet by mouth daily Active Wixela Inhub 250-50 mcg/dose diskus inhalerIndicati ons:Moderate persistent asthma without complication INHALE 1 PUFF TWICE A DAY -RINSE MOUTH WITH WATER AFTER USE. DO NOT SWALLOW. 60 each 14 05/29/20 24 Active naproxen (NAPROSYN) 500 mg tabletIndicatio ns:Chronic bilateral low back pain without sciatica TAKE 1 TABLET BY MOUTH TWICE A DAY WITH MEALS 60 tablet 3 01/22/20 25 Active albuterol HFA (PROVENTIL HFA,VENTOLIN HFA,PROAIR HFA) 90 mcg/actuation inhalerIndicati ons:Moderate persistent asthma without complication INHALE 2 PUFFS BY MOUTH EVERY 6 HOURS NEEDED FOR WHEEZING 54 each 4 01/24/[address] (CYMBALTA) 30 mg capsule TAKE 1 CAPSULE BY MOUTH EVERY DAY 90 capsule 1 01/30/[address] (CYMBALTA) 60 mg capsule TAKE 1 CAPSULE BY MOUTH EVERY DAY 90 capsule 1 03/25/20 25 Active methylPREDNISol one (MEDROL DOSEPACK) 4 mg DosepackIndicat ions:Moderate persistent asthma with acute exacerbation Take as directed on package. 21 tablet 04/10/20 25 Active triamcinolone (KENALOG) 0.1 % creamIndication s:Rash Apply to affected area 1-2 times daily as needed. Avoid face and groin. 30 g 5 04/10/20 25 026 Active cyclobenzaprine (FLEXERIL) 10 mg tabletIndicatio ns:Chronic bilateral low back pain without sciatica TAKE 1 TABLET BY MOUTH THREE TIMES A DAY NEEDED FOR MUSCLE SPASMS 90 tablet 2 04/15/20 25 Active chlorpheniramin e (CHLOR-TRIMETON ) 4 mg tablet Take 1 tablet (4 mg total) by mouth every 6 (six) hours as needed for allergies 025 Discontinued(T herapy completed) naloxone (NARCAN) 4 mg/actuation spray,non-aeros olIndications:O piate-Induced Respiratory Depression,risk mitigation for opioid overdose Administer 1 spray into affected nostril(s) as needed for opioid reversal Call 911. Administer a single spray in one nostril. Repeat every 3 minutes as needed if no or minimal response. 2 each 1 08/04/20 23 025 Discontinued(T herapy completed) methylPREDNISol one (MEDROL DOSEPACK) 4 mg Dosepack Take as directed on package. 21 tablet 07/16/20 24 025 Discontinued(T herapy completed) promethazine-DM (PROMETHAZINE-D M) 1.25-3 mg/mL syrup Take 10 mL by mouth every 4 (four) hours as needed for cough 240 mL 07/16/20 24 025 Discontinued(T herapy completed) guaiFENesin-cod eine (GUAITUSS AC) liquid 100-10 mg/5 mLIndications:A cute cough Take 5-10 mL by mouth every 4 (four) hours as needed for cough 120 mL 07/19/20 24 025 Discontinued(T herapy completed) DULoxetine DR (CYMBALTA) 60 mg capsule TAKE 1 CAPSULE BY MOUTH EVERY DAY 90 capsule 1 10/02/19 025 Discontinued cyclobenzaprine (FLEXERIL) 10 mg tabletIndicatio ns:Chronic bilateral low back pain without sciatica TAKE 1 TABLET BY MOUTH THREE TIMES A DAY NEEDED FOR MUSCLE SPASMS 90 tablet 2 01/22/20 25 025 Discontinued Active Problems Problem Noted Date Diagnosed Date Moderate persistent asthma with acute exacerbati on 04/10/2025 BMI 27.0-27.9,adult 04/30/2024 Upper back pain 04/30/2024 Need for hepatitis C screening test 12/06/2022 Physical exam, annual 12/06/2022 Need for vaccination 12/06/2022 Prehypertension 12/06/2022 Moderate persistent asthma without complication 12/06/2022 Presence of intrathecal pump 10/07/2022 Postlaminectomy syndrome, lumbar 10/07/2022 Spinal stenosis of lumbar re gion without neurogenic claudication 10/07/2022 Radiculopathy, lumbosacral region 10/07/2022 Chronic bilateral low back pain without sciatica 09/24/2022 Assessment & Plan (09/25/2022 11:08 AM VAULT CASHIER): Patient with history of chronic back pain managed with intrathecal pain pump presenting with worsening back pain in setting of need intrathecal pump pain med refill. - pain management consulted - cont home cymbalta, ritalin, and naproxen - scheduled tylenol as well as prn PO and IV hydromorphone for acute pain per pain management recs Assessment & Plan (09/24/2022 7:39 PM VAULT CASHIER): -patient with history of chronic back pain managed with intrathecal pain pump presenting with worsening back pain in setting of need intrathecal pump pain med refill. -pain management consulted with plan for bedside procedure in AM - cont home cymbalta, ritalin, and naproxen - will add scheduled tylenol as well as prn PO and IV hydromorphone for acute pain per pain management recs H/O ETOH abuse 09/24/2022 Assessment & Plan (09/25/2022 11:07 AM VAULT CASHIER): -reportedly sober for > 20 yrs Assessment & Plan (09/24/2022 7:33 PM VAULT CASHIER): -reportedly sober for > 20 yrs Neuropathy Resolved Problems Problem Noted Date Diagnosed Date Resolved Date BMI 23.0-23.9, adult 12/06/2022 024 Asthma 09/24/2022 09/24/2022 Acute pain 09/24/2022 09/24/2022 Assessment & Plan (09/24/2022 7:36 PM VAULT CASHIER): - cont home cymbalta, ritalin, and naproxen - will add scheduled tylenol as well as prn PO and IV hydromorphone per pain management recs Encounters Date Type Department Care Team Description 04/10/2025 10:30 AM CDT Office Visit [address] [place] [address] Jayda Conner NP Moderate persistent asthma with acute exacerbation (Primary Dx); BMI 27.0-27.9,adult; Rash; Neck pain 04/09/2025 Nurse Triage [place] [id number] [facility] [address] [place] [address] Zuleyma Gordon RN from Last 3 Months Immunizations Immunization Administration Dates Next Due Influenza, Unspecified 09/05/2024(Deferr ed: Patient Refused),10/10/2023(Deferred: Patient Refused),09/05/2023(Deferred: Patient Refused),09/05/2023(Deferred: Patient Refused),09/05/2023(Deferred: Patient Refused),12/06/2022(Deferred: Patient Refused),10/06/2021(Deferred: Patient Refused) Surgical History Surgery Date Site/Laterality Comments SPINAL FUSION SPINAL CORD STIMULATOR IMPLANT INTRATHECAL PUMP IMPLANTATION APPENDECTOMY VASECTOMY Medical History Medical History Date Comments Asthma Chronic back pain History of hypertension GERD (gastroesophageal reflux disease) resolved Type 2 diabetes mellitus Neuropathy Hypertension COVID-19 long hauler Spondylolisthesis lumbar Arthritis Social History Tobacco Use Types Packs/Day Years Used Date Smoking Tobacco: Former Cigarettes 1 20 1 98 - 2000 Passive Smoke Exposure: Past Smokeless Tobacco: Former Chew Tobacco Cessation:Counseling Given: Not Answered AUDIT-C Answer Date Recorded Q1: How often do you have a drink containing alcohol? Never 04/10/2025 Q2: How many drinks containi ng alcohol do you have on a typical day when you are drinking? Patient does not drink Q3: How often do you have si x or more drinks on one occasion? Never 04/10/2025 PHQ-2 Answer Date Recorded PHQ-2 Total Score (If total score is 3 or more points, staff should administer the PHQ-9) 0 04/10/2025 Personal Safety Answer Date Recorded Have you ever been in or are you currently in a harmful physical or emotional relationship or is someone making you feel afraid or unsafe? Denies 10/05/2023 Sex and Gender Information Value Date Recorded Sex Assigned at Not on file Legal Sex Male 6:02 PM VAULT CASHIER Gender Identity Male 06/07/2023 9:01 AM CDT Sexual Orientation Straight 10/13/2022 6: 17 AM VAULT CASHIER Obstetrics History Last Filed Vital Signs Vital Sign Reading Time Taken Comments Blood Pressure 160/90 04/10/2025 10:31 AM CDT Pulse 115 04/10/2025 10:31 AM CDT Temperature 37.9 C (100.3 F) 04/10/2025 10:31 AM CDT Respiratory Rate 20 10/05/2023 10:01 AM VAULT CASHIER Oxygen Saturation 97% 04/10/2025 10:31 AM CDT Inhaled Oxygen Concentration - - Weight 93 kg (205 lb) 04/10/2025 10:31 AM CDT Height 182.9 cm (6') 04/10/2025 10:31 AM CDT Body Mass Index 27.8 04/10/2025 10:31 AM CDT Plan of Treatment Health Maintenance Due Date Last Done Comments Colon Cancer Screening-Colonoscopy 1963 Hepatitis C Screening 1963 Prostate Cancer Screening-PSA 1963 DTaP/Tdap/Td Vaccine (1 - Tdap) 1974 Hepatitis B Screening 1981 Pneumococcal vaccine <65 (1 of 2 - PCV) 1982 Zoster Vaccine (1 of 2) 2013 Regular Well Visit/Exam 18-64 04/30/2025 04/30/2024 Influenza Vaccine (#1) 2025 Depression Screening 04/10/2026 04/10/2025, 04/30/2024, 10/10/2023, Additional history exists Insurance Advance Directives For more information, please contact: [phone] * Full Code (Latest Code Status on File) Date Activated Date Inactivated Comments 09/24/2022 7:18 PM 09/25/2022 7:07 PM Care Teams Child Support Case Officer Relationship Specialty Start Date End Date Jayda Conner NP [address] [facility] [address] [place] [address] PCP - General Internal Medicine 12/06/22
--- OUTSIDE RECORDS SUMMARY | 2025-04-19 14:00 | XMS_ITS | Encounter Summary ---
Author Organization [facility] Healthcare Address [address] [place] [id number] Care Team Providers Care Regional Sales Associate Name Role Phone Jayda Conner EXTRUSION TECHNICIAN Primary Care Provider [phone] Felipe Sandoval MD Primary Care Provide r Jayda Conner EXTRUSION TECHNICIAN Primary Care Provider [phone] Encounter Details Date Type Department Care Team (Late st Contact Info) Description 10/07/2022 Telephone [facility] [address] [place] [address] [place] [id number] [facility] [address] [place] [address] Social History Tobacco Use Types Packs/Day Years Used Date Smoking Tobacco: Former Cigarettes 1 1 981 - 2000 Passive Smoke Exposure: Past AUDIT-C Answer Date Recorded Q1: How often do you have a drink containing alcohol? Never 10/07/2022 Q2: How many drinks containi ng alcohol do you have on a typical day when you are drinking? Patient does not drink Q3: How often do you have si x or more drinks on one occasion? Never 10/07/2022 Sex and Gender Information Value Date Recorded Sex Assigned at Not on file Legal Sex Male 6:02 PM TIME SIGNAL WIRER Gender Identity Male 06/07/2023 9:01 AM CDT Sexual Orientation Straight 10/13/2022 6: 17 AM TIME SIGNAL WIRER documented as of this encounter Functional Status * AUDIT-C Score Answer Date of Assessment Author 0 10/07/2022 2:20 PM Abby Nunez, RN * Question Answer Date of Assessment Author Q1: How often do you have a drink containing alcohol? Never 10/07/2022 2:20 PM Abby Nunez, RN Q2: How many drinks containing alcohol do you have on a typical day when you are drinking? Patient does not drink 10/07/2022 2:20 PM Abby Nunez, RN Q3: How often do you have six or more drinks on one occasion? Never 10/07/2022 2:20 PM Abby Nunez, RN documented as of this encounter Plan of Treatment Not on file documented as of this encounter Visit Diagnoses Not on filedocumented in this encounter Care Teams Regional Sales Associate Relationship Specialty Start Date End Date Jayda Conner NP [address] [facility] [address] [place] [address] PCP - General Internal Medicine 10/07/22 10/12/22 [place] [id number] [facility] [address] [place] [address] PCP - General Pain Management 11/29/22 12/05/22 Jayda Conner NP [address] [facility] [address] [place] [address] PCP - General Internal Medicine 12/06/22 documented as of this encounter
== END 2025-04-19 13:56 | disposition home or self-care (01) ==
PROVIDERS: PCP Nurse Practitioner Family; Visit Provider Nurse Practitioner Family
DX: M47.892 Other spondylosis, cervical region (principal)
CPT/HCPCS: 72050